=== PATIENT | male | born 1990 | race Caucasian/White ===

== ENCOUNTER 2017-06-13 10:50 | Emergency (ER) | payer MEDICAID ==
[2017-06-13] MEDS ORDERED: LIDOCAINE VISCOUS 2% 15 ML UDC MM STA (12:32)
[2017-06-13] MEDS ORDERED: IBUPROFEN 400 MG TABLET PO STA (12:32)
[2017-06-13] MEDS ORDERED: PENICILLIN VK 250 MG TABLET PO STA (12:32)
--- NOTE | 2017-06-13 12:59 | ED Physician Documentation ---
History of Present Illness - Stated complaint Stated Complaint: TOOTH PX - Chief complaint Chief Complaint: General - Additonal information Additional information: hx from pt 27 male has recurrent bouts of emesis for many years (not why he is here today) due to excess acid he has enamel break down and now has a cracked and painful upper right premolar Review of Systems Constitutional: denies: Fever, Chills Throat: reports: Dental pain / toothache PD PAST MEDICAL HISTORY - Past Medical History Neuro: Seizure disorder Psych: Anxiety, Panic attacks, Other - Past Surgical History Past Surgical History: No - Present Medications Home Medications: Ambulatory Orders Medication Instructions Recorded Confirmed Lorazepam [Ativan] 1 mg PO DAILY 04/06/16 06/13/17 Lorazepam [Ativan] 1 mg PO TID PRN #10 tablet 04/06/16 06/13/17 QUEtiapine [SEROquel] 25 mg PO BID 04/06/16 06/13/17 Penicillin Vk 500 mg PO Q8H 10 Days tablet 06/13/17 - Allergies Allergies/Adverse Reactions: Allergies Allergy/AdvReac Type Severity Reaction Status Date / Time No Known Drug Allergies Allergy Verified 04/06/16 15:59 - Social History Does the pt smoke?: Yes Smoking Status: Current every day smoker Does the pt drink ETOH?: No Does the pt have substance abuse?: No - Immunizations Immunizations are current?: Yes - POLST Patient has POLST: No PD ED PE NORMAL - Vitals Vital signs reviewed: Yes - General General: Alert and oriented X 3 - HEENT HEENT: No: Dentition benign (very tender right upper premolar s visible cavity redness or swelling, no trismus) - Cardiac Cardiac: RRR - Respiratory Respiratory: No respiratory distress, Clear bilaterally Results - Vitals Vitals: Vital Signs - 24 hr 06/13/17 11:10 Temperature 36.8 C Heart Rate 56 L Respiratory 18 Rate Blood Pressure 122/76 O2 Saturation 98 Oxygen O2 Source Room air PD MEDICAL DECISION MAKING - ED course ED course: pt states Alfonso cannot take care of him for 5 months Departure - Departure Disposition: 01 Home, Self Care Clinical Impression: Pain, dental Condition: Good Instructions: ED Tooth Pain Prescriptions: Penicillin Vk 500 mg PO Q8H 10 Days tablet Comments: You can take motrin and tylenol and also try orajel for the pain. Try calling some other local dentists or the dental clinic to be seen sooner
[2017-06-13 13:00] VITALS: BP 122/71
== END 2017-06-13 13:12 | disposition home or self-care (01) ==
LOC: ED 10:50
DX: K08.89 Other specified disorders of teeth and supporting structures (principal); F17.200 Nicotine dependence, unspecified, uncomplicated
CPT/HCPCS: 99283; A9270